=== PATIENT | female | born 1975 | race Caucasian/White ===

== ENCOUNTER 2016-12-07 21:01 | Emergency (ER) | payer OTHER ==
[~2016-12-07] VITALS: Ht 162.6 cm; Wt 70.9 kg
[~2016-12-07 21:01] MED LIST: CYMBALTA30 MG PO; KEFLEX500 MG PO; NAPROSYN500 MG PO; ORTHO TRI-CY1 TABLE1 PO
[2016-12-07 22:40] LABS: CHLORIDE 105 mEq/L (99-109); POTASSIUM 4.6 mEq/L (3.7-5.4); SODIUM 139 mEq/L (136-147)
[2016-12-07 22:42] LABS: GLUCOSE 93 mg/dL (70-99)
[2016-12-07 22:43] LABS: ANION GAP 13 MEQ/L (2-14); MCH 28.6 PG (29.0-34.0); MCHC 32.9 G/DL (30.0-36.0); MCV 86.9 FL (83-99); MEAN PLAT.VOLUME 10.7 uM^3 (9.5-12.4); PLATELET COUNT 195 K/uL (156-360); RBC DIS.WIDTH-CV 12.6 % (11.8-14.6); RBC DIS.WIDTH-SD 40.2 % (39-53); RED BLOOD COUNT 4.72 M/uL (3.80-5.20); WHITE BLOOD COUNT 13.9 K/uL (4.1-10.2)
[2016-12-07 22:46] LABS: GFR ESTIMATE (CALCULATED) > 59 mL/min/
[2016-12-07 22:47] LABS: UREA NITROGEN (BUN) 18 mg/dL (9-23)
[2016-12-07 22:52] LABS: TROP-I INTERPRETATION NEGATIVE; TROPONIN-I 0.09 ng/mL (0.0-0.30)
[2016-12-07 23:29] LABS: TOTAL BILIRUBIN 0.7 mg/dL (0.0-1.0)
[2016-12-07 23:30] LABS: ALKALINE PHOSPHATASE 96 IU/L (3-129)
[2016-12-07 23:32] LABS: DIRECT BILIRUBIN 0.3 mg/dL (0.0-0.3)
[2016-12-07 23:33] LABS: LIPASE 15 U/L (1.0-51.0)
[2016-12-07 23:56] LABS: D-DIMER ELISA 0.29 mg/L FEU (< 0.57)
[2016-12-08 00:35] LABS: TROP-I INTERPRETATION NEGATIVE; TROPONIN-I 0.09 ng/mL (0.0-0.30)
[2016-12-08 02:55] VITALS: BP 132/80
== END 2016-12-08 02:55 | disposition home or self-care (01) ==
LOC: EME 21:01
PROVIDERS: Emergency Medicine
DX: R07.2 Precordial pain (principal); M79.7 Fibromyalgia
CPT/HCPCS: 71020; 80048; 80076; 83690; 84484; 85027; 85379; 93005; 99281; 99284

== ENCOUNTER → 2017-09-03 | Outpatient (CLI) | payer OTHER | END | disposition home or self-care (01) | LOC: CT 20:12 | DX: K21.9 Gastro-esophageal reflux disease without esophagitis (principal); K76.89 Other specified diseases of liver; Z90.89 Acquired absence of other organs; R93.5 Abnormal findings on diagnostic imaging of other abdominal regions, including retroperitoneum | CPT/HCPCS: 74177 ==